=== PATIENT | male | born 1950 | race Caucasian/White ===

== ENCOUNTER 2018-05-10 20:05 | Emergency (ER) | payer OTHER ==
--- NOTE | 2018-05-10 21:44 | EDPHYS ---
Physician Documentation [facility] Name: Joaquín Peguero Age: 67 yrs Sex: Male : 1950 Arrival Date: 05/10/2018 Time: 20:06 Bed 7 Private MD: ED Physician Maurizio Birmingham HPI: 05/10 21:01 This 67 yrs old Male presents to ER via Ambulatory with complaints of Nose jr8 Bleed. 21:01 The patient presents with a nose bleed, that is apparently anterior, from both nares, jr8 occurred from an unknown cause, that is with clots, stopped /dried blood noted. Onset: The symptoms/episode began/occurred acutely, today. Modifying factors: The symptoms are alleviated by nothing. the symptoms are aggravated by blowing nose. Associated signs and symptoms: The patient has no apparent associated signs or symptoms, Loss of consciousness: the patient experienced no loss of consciousness. Severity of symptoms: At their worst the symptoms were mild in the emergency department the symptoms are unchanged. The patient has not experienced similar symptoms in the past. The patient has not recently seen a physician. Patient stated that he has occasional bloody noses. Stated that he had one today that started at 4 and lasted until he got here. Has not had one last that long before. Denies dizziness, near syncope, shortness of breath, or any other symptoms . Historical: - Allergies: 20:20 NKA; aj - Home Meds: 20:20 allopurinol 300 mg Oral tab 1 tab once daily [Active]; aspirin 81 mg Oral TbEC 1 tab aj once daily [Active]; atorvastatin 40 mg Oral tab 1 tab once daily [Active]; Effient 10 mg Oral tab 1 tab once daily [Active]; gabapentin 400 mg Oral cap 1 cap 3 times per day [Active]; glipizide 10 mg Oral tab 1 tab once daily [Active]; levothyroxine 75 mcg tab 1 tab once daily [Active]; metformin 500 mg Oral tr24 4 per day [Active]; metoprolol tartrate 50 mg Oral tab 1 tab 2 times per day [Active]; omeprazole 40 mg Oral cpDR 1 cap once daily [Active]; potassium citrate 10 mEq (1,080 mg) Oral TbER 1 tab 3 times per day [Active]; Pristiq 50 mg Oral Tb24 1 tab once daily [Active]; ramipril 5 mg Oral cap 1 cap once daily [Active]; Super B Complex-Vitamin C Oral tab twice a day [Active]; trazodone 50 mg Oral tab daily [Active]; Vitamin D Oral [Active]; - PMHx: 20:20 Diabetes - NIDDM; Hypertension; ischemic heart disease; aj - PSHx: 20:20 Lithotripsy; back; Cholecystectomy; Heart stents; aj - Immunization history:: Adult Immunizations up to date. - Social history:: Smoking status: Patient/guardian denies using tobacco. - Ebola Screening: : Patient negative for fever greater than or equal to 101.5 degrees Fahrenheit, and additional compatible Ebola Virus Disease symptoms Patient denies exposure to infectious person Patient denies travel to an Ebola-affected area in the 21 days before illness onset No symptoms or risks identified at this time. ROS: 21:01 Eyes: Negative for injury, pain, redness, and discharge, Neck: Negative for injury, jr8 pain, and swelling, Cardiovascular: Negative for chest pain, palpitations, and edema, Respiratory: Negative for shortness of breath, cough, wheezing, and pleuritic chest pain, Abdomen/GI: Negative for abdominal pain, nausea, vomiting, diarrhea, and constipation, Back: Negative for injury and pain, MS/Extremity: Negative for injury and deformity, Skin: Negative for injury, rash, and discoloration, Neuro: Negative for headache, weakness, numbness, tingling, and seizure. 21:01 ENT: Positive for nose bleed, Negative for drainage from ear(s), ear pain, sinus congestion, sore throat, difficulty swallowing, difficulty handling secretions, hoarseness. Exam: 21:01 Eyes: Pupils equal round and reactive to light, extra-ocular motions intact. Lids and jr8 lashes normal. Conjunctiva and sclera are non-icteric and not injected. Cornea within normal limits. Periorbital areas with no swelling, redness, or edema. Neck: Trachea midline, no thyromegaly or masses palpated, and no cervical lymphadenopathy. Supple, full range of motion without nuchal rigidity, or vertebral point tenderness. No Meningismus. Cardiovascular: Regular rate and rhythm with a normal S1 and S2. No gallops, murmurs, or rubs. Normal PMI, no JVD. No pulse deficits. Respiratory: Lungs have equal breath sounds bilaterally, clear to auscultation and percussion. No rales, rhonchi or wheezes noted. No increased work of breathing, no retractions or nasal flaring. Abdomen/GI: Soft, non-tender, with normal bowel sounds. No distension or tympany. No guarding or rebound. No evidence of tenderness throughout. Back: No spinal tenderness. No costovertebral tenderness. Full range of motion. Skin: Warm, dry with normal turgor. Normal color with no rashes, no lesions, and no evidence of cellulitis. MS/ Extremity: Pulses equal, no cyanosis. Neurovascular intact. Full, normal range of motion. Neuro: Awake and alert, GCS 15, oriented to person, place, time, and situation. Cranial nerves II-XII grossly intact. Motor strength 5/5 in all extremities. Sensory grossly intact. Cerebellar exam normal. Normal gait. 21:01 ENT: Nose: External nose: no obvious acute abnormality, Nasal septum: is midline, Nasal mucosa: moist, clotted blood, in both nares. Vital Signs: 20:20 BP 152 / 77; Pulse 71; Resp 16; Temp 98.6; Pulse Ox 97% on R/A; Weight 91.63 kg; Height aj 5 ft. 7 in. (170.18 cm); 21:14 BP 130 / 63; Pulse 72; Resp 17; Pulse Ox 97% on R/A; tl2 21:42 BP 127 / 77; Pulse 72; Resp 16; Temp 98.7(O); Pulse Ox 98% on R/A; Pain 0/10; tl1 20:20 Body Mass Index 31.64 (91.63 kg, 170.18 cm) MDM: 20:27 Patient medically screened. jr8 21:04 Data reviewed: vital signs, nurses notes. Data interpreted: Pulse oximetry: on room air jr8 is 97 %. Interpretation: normal. Counseling: I had a detailed discussion with the patient and/or guardian regarding: the historical points, exam findings, and any diagnostic results supporting the discharge/admit diagnosis, the need for outpatient follow up, an ENT specialist, a family practitioner, to return to the emergency department if symptoms worsen or persist or if there are any questions or concerns that arise at home. ED course: Patient without bleeding at this time. Clots in both nares. Is not swallowing blood. Will monitor for a while to insure that bleeding remains stopped . 21:43 ED course: Patient still without nosebleed. Will send home. Explained to him if it jr8 starts again to come back for packing. Patient good with this and will come back if needed . Administered Medications: No medications were administered Disposition: 05/11 06:47 Co-signature as Attending Physician, Maurizio Birmingham MD. Disposition: 05/10/18 21:44 Discharged to Home. Impression: Epistaxis. - Condition is Stable. - Discharge Instructions: Nosebleed. - Medication Reconciliation Form, Thank You Letter, Antibiotic Education, Prescription Opioid Use form. - Follow up: Private Physician; When: 2 - 3 days; Reason: Recheck today's complaints, Continuance of care, Re-evaluation by your physician. - Problem is new. - Symptoms have improved. Signatures: Montserrat Nieto RN RN Thierry Driver PA PA jr8 Shaina Tyler RN RN tl1 Maurizio Birmingham MD MD Corrections: (The following items were deleted from the chart) 05/10 22:00 21:44 05/10/2018 21:44 Discharged to Home. Impression: Epistaxis. Condition is Stable. tl1 Forms are Medication Reconciliation Form, Thank You Letter, Antibiotic Education, Prescription Opioid Use. Follow up: Private Physician; When: 2 - 3 days; Reason: Recheck today's complaints, Continuance of care, Re-evaluation by your physician. Problem is new. Symptoms have improved. jr8
--- NOTE | 2018-05-10 21:44 | ER ---
Nurse's Notes [facility] Name: Joaquín Peguero Age: 67 yrs Sex: Male : 1950 Arrival Date: 05/10/2018 Time: 20:06 Bed 7 Private MD: Diagnosis: Epistaxis Presentation: 05/10 20:18 Presenting complaint: Patient states: Nose bleed for 4 hours. Transition of care: aj patient was not received from another setting of care. Onset of symptoms was May 10, 2018. Risk Assessment: Do you want to hurt yourself or someone else? Patient reports no desire to harm self or others. Initial Sepsis Screen: Does the patient meet any 2 criteria? No. Patient's initial sepsis screen is negative. Does the patient have a suspected source of infection? No. Patient's initial sepsis screen is negative. Care prior to arrival: None. 20:18 Method Of Arrival: Ambulatory 20:18 Acuity: KINSEY 4 aj Triage Assessment: 20:20 General: Appears in no apparent distress. comfortable, Behavior is calm, cooperative, aj appropriate for age. Pain: Denies pain. Neuro: Level of Consciousness is awake, alert, obeys commands, Oriented to person, place, time, situation, Appropriate for age. Respiratory: Airway is patent Respiratory effort is even, unlabored, Respiratory pattern is regular, symmetrical. Derm: Skin is intact, is healthy with good turgor, Skin is pink, warm \T\ dry. normal. Historical: - Allergies: 20:20 NKA; aj - Home Meds: 20:20 allopurinol 300 mg Oral tab 1 tab once daily [Active]; aspirin 81 mg Oral TbEC 1 tab aj once daily [Active]; atorvastatin 40 mg Oral tab 1 tab once daily [Active]; Effient 10 mg Oral tab 1 tab once daily [Active]; gabapentin 400 mg Oral cap 1 cap 3 times per day [Active]; glipizide 10 mg Oral tab 1 tab once daily [Active]; levothyroxine 75 mcg tab 1 tab once daily [Active]; metformin 500 mg Oral tr24 4 per day [Active]; metoprolol tartrate 50 mg Oral tab 1 tab 2 times per day [Active]; omeprazole 40 mg Oral cpDR 1 cap once daily [Active]; potassium citrate 10 mEq (1,080 mg) Oral TbER 1 tab 3 times per day [Active]; Pristiq 50 mg Oral Tb24 1 tab once daily [Active]; ramipril 5 mg Oral cap 1 cap once daily [Active]; Super B Complex-Vitamin C Oral tab twice a day [Active]; trazodone 50 mg Oral tab daily [Active]; Vitamin D Oral [Active]; - PMHx: 20:20 Diabetes - NIDDM; Hypertension; ischemic heart disease; aj - PSHx: 20:20 Lithotripsy; back; Cholecystectomy; Heart stents; aj - Immunization history:: Adult Immunizations up to date. - Social history:: Smoking status: Patient/guardian denies using tobacco. - Ebola Screening: : Patient negative for fever greater than or equal to 101.5 degrees Fahrenheit, and additional compatible Ebola Virus Disease symptoms Patient denies exposure to infectious person Patient denies travel to an Ebola-affected area in the 21 days before illness onset No symptoms or risks identified at this time. Screenin:59 Abuse screen: Denies threats or abuse. Denies injuries from another. Nutritional tl1 screening: No deficits noted. Tuberculosis screening: No symptoms or risk factors identified. Fall Risk None identified. Assessment: 20:59 General: Appears in no apparent distress. comfortable, Behavior is calm, cooperative, tl1 appropriate for age. Pain: Denies pain. Neuro: Level of Consciousness is awake, alert, obeys commands, Oriented to person, place, time, situation, [employer] Station Collector are equal bilaterally Moves all extremities. Gait is steady, Speech is normal, Cardiovascular: Denies chest pain. Respiratory: Airway is patent Trachea midline Respiratory effort is even, unlabored, Breath sounds are clear bilaterally. GI: Abdomen is non-distended, Bowel sounds present X 4 quads. Abd is soft and non tender X 4 quads. : No signs and/or symptoms were reported regarding the genitourinary system. EENT: Nares with bleeding noted bilaterally Reports nasal discharge that is bloody. Derm: No signs and/or symptoms reported regarding the dermatologic system. 21:55 Reassessment: Patient and/or family updated on plan of care and expected duration. Pain tl1 level reassessed. Patient is alert, oriented x 3, equal unlabored respirations, skin warm/dry/pink. Patient denies pain at this time. Patient states feeling better. Patient states symptoms have improved. no signs and symptoms of nose bleed.. Vital Signs: 20:20 BP 152 / 77; Pulse 71; Resp 16; Temp 98.6; Pulse Ox 97% on R/A; Weight 91.63 kg; Height aj 5 ft. 7 in. (170.18 cm); 21:14 BP 130 / 63; Pulse 72; Resp 17; Pulse Ox 97% on R/A; tl2 21:42 BP 127 / 77; Pulse 72; Resp 16; Temp 98.7(O); Pulse Ox 98% on R/A; Pain 0/10; tl1 20:20 Body Mass Index 31.64 (91.63 kg, 170.18 cm) ED Course: 20:06 Patient arrived in ED. am2 20:19 Triage completed. aj 20:20 Arm band placed on right wrist. Patient placed in an exam room. aj 20:27 Thierry Coleman PA is PHCP. jr8 20:27 Maurizio Birmingham MD is Attending Physician. 8 20:59 Shaina Tyler, REY is Primary Nurse. tl1 21:01 No provider procedures requiring assistance completed. tl1 Administered Medications: No medications were administered Outcome: 21:44 Discharge ordered by . jr8 22:00 Patient left the ED. tl1 Signatures: Montserrat Nieto RN RN aj Roszak, Josh, PA PA [facility] Shaina Tyler RN RN tl1 Margarette Mckinley RN RN tl2 Montserrat Solis amMaximino
[2018-05-10 22:18] VITALS: BP 127/77; TEMP 98.7; O2SAT 98
== END 2018-05-10 22:00 | disposition home or self-care (01) ==
LOC: ER 20:05
DX: R04.0 Epistaxis (principal); E11.9 Type 2 diabetes mellitus without complications; Z79.84 Long term (current) use of oral hypoglycemic drugs; I10 Essential (primary) hypertension
CPT/HCPCS: 99281

== ENCOUNTER 2020-10-15 15:50 | Emergency (ER) | payer OTHER ==
--- OUTSIDE RECORDS SUMMARY | 2020-10-15 15:52 | XMS REPORT | Clinical Summary ---
:1950 Author Organization [facility] Address [address] [place] [address] Care Team Providers Name Role Phone DO Nic Primary Care Provider Allergies Active Allergy Reactions Severity Noted Date Comments Hydromorphone Other (See Comments) High 03/16/2019 Confus ion, agitation, and short term aleida ry loss Medications Medication Sig Dispensed Refills Start Date End Date Status levothyroxine Take 75 mcg by 0 A ctive (SYNTHROID, LEVOXYL) 75 mouth daily. mcg tablet allopurinol (ZYLOPRIM) Take 300 mg by 0 Active 300 MG tablet mouth daily. omeprazole (PriLOSEC) 40 Take 40 mg by 0 Active MG capsule mouth daily. gabapentin (NEURONTIN) Take 400 mg by 0 Active 400 mg capsule mouth 3 (three) times a day. prasugrel (EFFIENT) 10 Take 10 mg by 0 Active mg tablet mouth daily. desvenlafaxine (PRISTIQ) Take 50 mg by 0 Active 50 MG 24 hr tablet mouth daily. traZODone (DESYREL) 50 Take 50 mg by 0 Active MG tablet mouth nightly. atorvastatin (LIPITOR) Take 40 mg by 0 Active 40 MG tablet mouth daily. ramipril (ALTACE) 5 MG Take 5 mg by 0 Active capsule mouth daily. metoprolol tartrate Take 50 mg by 0 Active (LOPRESSOR) 50 mg tablet mouth 2 (two) times a day. aspirin (ECOTRIN) 81 MG Take 81 mg by 0 Active enteric coated tablet mouth daily. metFORMIN (GLUCOPHAGE) Take 500 mg by 0 Active 500 mg tablet mouth 4 (four) times a day. glipiZIDE (GLUCOTROL) 10 Take 10 mg by 0 Active MG tablet mouth 2 (two) times a day before meals. Active Problems Problem Noted Date Colonic mass 03/16/2019 Encounters Date Type Specialty Care Team Description 09/23/2020 Orders Only General Surgery Bao Nicolas MD after 10/15/2019 Surgical History Surgery Date Site/Laterality Comments COLONOSCOPY BACK SURGERY 1983, 1994 LITHOTRIPSY FOOT SURGERY Right 2010, spider bit e infection CHOLECYSTECTOMY 2012 CORONARY STENT PLACEMENT x 2 201 4 VASCULAR STENT GRAFT EXT EA ADDL right groin RESECTION, COLON, LOW ANTERIOR, 03/16/2019 Abdomen/N/A Procedure: ROBOTIC ASSISTED LAPAROSCOPIC, ROBOT-ASSISTED LAP AROSCOPIC LOW ANTERIOR RESECTION WITH L N DISSECTION, SPLE WENCESLAO FLEXURE TAKEDOWN, DRAINA GE OF ABSCESS; Surgeo n: Bao Nicolas M D; Location: [facility] OR; Service: Colon a nd Rectal Surgery; Latera lity: N/A; Medical devices from this surgery are in t he Implants section. 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- was on antibiotics for 6 mo nths PAD (peripheral artery disease) (HCC) Hard of hearing Wears glasses Malignant melanoma (HCC) left ear 2017-r emoved 10/31 Hepatitis B 1970s- treated Hypothyroidism Hard of hearing no hearing aids Family History Medical History Relation Name Comments Heart disease Brother Cancer Father Heart disease Mother Diabetes Sister Relation Name Status Comments Brother Father Mother Sister Social History Tobacco Use Types Packs/Day Years Used Date Never Smoker Smokeless Tobacco: Never Used Alcohol Use Drinks/Week oz/Week Comments No Alcohol Habits Answer Date Recorded How often do you have a drink containing alcohol? Never 03/07/2019 How many drinks containing alcohol do you have on a typical Not asked day when you are drinking? How often do you have six or more drinks on one occasion? No t asked Sex Assigned at Date Recorded Not on file Last Filed Vital Signs Not on file Plan of Treatment Health Maintenance Due Date Last Done Comments COLONOSCOPY SCREENING 2001 SHINGLES VACCINES (#1) 2001 65+ PNEUMOCOCCAL VACCINE (1 of 1 - PPSV23) 2016 INFLUENZA VACCINE 06/14/2020 Implants Implanted Type Area Sap Business Objects Consultant Device Shelf Model / Identifier Expiration Serial / Date Lot 29mm [place] Circular Powered Stapler Stapling - N/A: N/A [employer] 01/11/2022 [id number] / Implanted: Qty: 1 on 03/16/2019 by Bao Nicolas MD a t [facility] Endo ENDO-SURGERY, A / cutters, [employer] [id number] staplers, [employer] reloads Results Not on fileafter 10/15/2019 Insurance Payer Benefit Plan / Subscriber ID Effective Dates Phone Addre ss Type Group MEDICARE MEDICARE PART A [id number] 2016-Present [place], [place] Medicare AND B Advance Directives For more information, please contact: [phone] Type Date Recorded Patient Litigation Assistant Explanati on Advance Directives, Living Will and Medical Power of Windows Architect Code Status Date Activated Date Inactivated Comments Full Code 03/16/2019 12:03 PM 03/18/2019 3:01 PM Code Status decision reached by: Patient
--- NOTE | 2020-10-15 19:46 | RAD REPORT ---
EXAM DESCRIPTION: RAD - Chest Single View - 10/15/2020 7:38 pm CLINICAL HISTORY: hypertensive, abnornal labs COMPARISON: Two view chest October 2017 TECHNIQUE: AP portable chest image was obtained 10/15/2020 7:38 pm . FINDINGS: Lung volumes are low accentuating heart, vasculature and lung markings. No peripheral mass or consolidation. No significant failure or volume overload. Sternotomy wires have been placed since prior study. Heart and vasculature are normal. No measurable pleural effusion and no pneumothorax. N o acute bony abnormality seen. No acute aortic findings suspected. IMPRESSION: Limited shallow inspiration exam without acute cardiopulmonary finding.
[2020-10-15 20:59] LABS: Absolute Lymphocytes (CBC) 1.2 K/uL (0.7-4.9); Basophils % 0.9 % (0-1.3); Hematocrit 44.9 % (39.6-49.0); Lymphocytes % 12.9 % (15.3-44.8); MPV 8.1 fL (7.6-11.3); RBC Red Blood Cell Count 4.95 M/uL (4.33-5.43)
[2020-10-15 21:05] LABS: Protime INR 1.07
[2020-10-15 21:14] LABS: ALT/SGPT 32 U/L (12-78); AST/SGOT 24 U/L (15-37); Alkaline Phosphatase 116 U/L (45-117); BUN Blood Urea Nitrogen 33 mg/dL (7-18); Bicarbonate 24 mmol/L (21-32); Bilirubin Direct 0.1 mg/dL (0-0.2); Bilirubin Total 0.4 mg/dL (0.2-1.0); Glucose Level 208 mg/dL (74-106); Magnesium 2.8 mg/dL (1.8-2.4); NT PRO-BNP 62 pg/mL (<125); Protein, Total 8.6 g/dL (6.4-8.2); Sodium Level 137 mmol/L (136-145); Troponin (Emerg Dept Use Only) < 0.02 ng/mL (0.0-0.045)
--- NOTE | 2020-10-15 21:27 | EDPHYS ---
Physician Documentation [facility] Name: Joaquín Peguero Age: 70 yrs Sex: Male : 1950 Arrival Date: 10/15/2020 Time: 15:51 Bed 5 Private MD: ED Physician Adalberto Barnes HPI: 10/15 19:16 This 70 yrs old Male presents to ER via Ambulatory with complaints of mh7 Abnormal EKG, . 19:16 Patient sent from clinic due to abnormal labs and abnormal EKG. Onset: The mh7 symptoms/episode began/occurred 1 week(s) ago. Severity of symptoms: At their worst the symptoms were mild 7 day(s) ago, in the emergency department the symptoms are unchanged. The patient has been recently seen by a physician: the patient's primary care provider, earlier today. Patient states that he was seen in clinic last week to have routine lab work. He was told that his potassium was elevated and to go to ER for further evaluation. He was seen in clinic again today and was told that his EKG was abnormal and to go to the ER for evaluation. He denies any complaints including headache, chest pain, abdominal pain, SOB, nausea, vomiting, dizziness, numbness/tingling, or weakness.. Historical: - Allergies: 21:46 NKA; ll2 - PMHx: 21:46 Diabetes - NIDDM; Hypertension; ischemic heart disease; CAD; ll2 - PSHx: 21:46 Lithotripsy; back; Cholecystectomy; Heart stents; CABG; Aortic valve Replacment; ll2 - Immunization history:: Adult Immunizations up to date, Pneumococcal vaccine is up to date, Flu vaccine is up to date. - Social history:: Smoking status: Patient denies any tobacco usage or history of. ROS: 19:16 Constitutional: Negative for fever, chills, and weight loss, Eyes: Negative for injury, mh7 pain, redness, and discharge, ENT: Negative for injury, pain, and discharge, Neck: Negative for injury, pain, and swelling, Cardiovascular: Negative for chest pain, palpitations, and edema, Respiratory: Negative for shortness of breath, cough, wheezing, and pleuritic chest pain, Abdomen/GI: Negative for abdominal pain, nausea, vomiting, diarrhea, and constipation, Back: Negative for injury and pain, : Negative for injury, bleeding, discharge, and swelling, MS/Extremity: Negative for injury and deformity, Skin: Negative for injury, rash, and discoloration, Neuro: Negative for headache, weakness, numbness, tingling, and seizure, Psych: Negative for depression, anxiety, suicide ideation, homicidal ideation, and hallucinations, Allergy/Immunology: Negative for hives, rash, and allergies, Endocrine: Negative for neck swelling, polydipsia, polyuria, polyphagia, and marked weight changes, Hematologic/Lymphatic: Negative for swollen nodes, abnormal bleeding, and unusual bruising. Exam: 19:16 Constitutional: This is a well developed, well nourished patient who is awake, alert, mh7 and in no acute distress. Head/Face: Normocephalic, atraumatic. Eyes: Pupils equal round and reactive to light, extra-ocular motions intact. Lids and lashes normal. Conjunctiva and sclera are non-icteric and not injected. Cornea within normal limits. Periorbital areas with no swelling, redness, or edema. Neck: Trachea midline, no thyromegaly or masses palpated, and no cervical lymphadenopathy. Supple, full range of motion without nuchal rigidity, or vertebral point tenderness. No Meningismus. Chest/axilla: Normal chest wall appearance and motion. Nontender with no deformity. No lesions are appreciated. Cardiovascular: Regular rate and rhythm with a normal S1 and S2. No gallops, murmurs, or rubs. Normal PMI, no JVD. No pulse deficits. Respiratory: Lungs have equal breath sounds bilaterally, clear to auscultation and percussion. No rales, rhonchi or wheezes noted. No increased work of breathing, no retractions or nasal flaring. Abdomen/GI: Soft, non-tender, with normal bowel sounds. No distension or tympany. No guarding or rebound. No evidence of tenderness throughout. Back: No spinal tenderness. No costovertebral tenderness. Full range of motion. Skin: Warm, dry with normal turgor. Normal color with no rashes, no lesions, and no evidence of cellulitis. MS/ Extremity: Pulses equal, no cyanosis. Neurovascular intact. Full, normal range of motion. Neuro: Awake and alert, GCS 15, oriented to person, place, time, and situation. Cranial nerves II-XII grossly intact. Motor strength 5/5 in all extremities. Sensory grossly intact. Cerebellar exam normal. Normal gait. Psych: Awake, alert, with orientation to person, place and time. Behavior, mood, and affect are within normal limits. Vital Signs: 15:57 BP 164 / 70; Pulse 73; Resp 18 S; Temp 97.1(TE); Pulse Ox 98% on R/A; Weight 94.17 kg ca1 (R); Height 5 ft. 7 in. (170.18 cm) (R); Pain 0/10; 20:58 BP 134 / 81; Pulse 72; Resp 16; Pulse Ox 96% on R/A; rv 15:57 Body Mass Index 32.51 (94.17 kg, 170.18 cm) ca1 MDM: 21:23 Differential Diagnosis Abnormal Labs, Abnormal EKG, Hypertension, Diabetes. Data [facility] reviewed: vital signs, nurses notes, old medical records, lab test result(s), cardiac enzymes, CBC, electrolytes, EKG, radiologic studies, plain films. Data interpreted: Pulse oximetry: on room air is 96 %. Interpretation: normal. Counseling: I had a detailed discussion with the patient and/or guardian regarding: the historical points, exam findings, and any diagnostic results supporting the discharge/admit diagnosis, the presence of at least one elevated blood pressure reading (>120/80) during this emergency department visit, lab results, radiology results, the need for outpatient follow up, to return to the emergency department if symptoms worsen or persist or if there are any questions or concerns that arise at home. Response to treatment: the patient's symptoms have resolved after treatment, the patient's blood pressure is in an acceptable range, mental status has returned to baseline, the patient no longer shows bradycardia, the patient is not short of breath, the patient is not tachycardic, the patient's pain is gone, the patient's temperature has normalized. 21:26 Patient medically screened. [facility] 10/15 19:15 Order name: Basic Metabolic Panel; Complete Time: 21:19 [facility] 10/15 19:15 Order name: CBC with Diff; Complete Time: 21:15 [facility] 10/15 19:15 Order name: LFT's; Complete Time: 21:19 [facility] 10/15 19:15 Order name: Magnesium; Complete Time: 21:19 [facility] 10/15 19:15 Order name: NT PRO-BNP; Complete Time: 21:19 [facility] 10/15 19:15 Order name: PT-INR; Complete Time: 21:15 [facility] 10/15 19:15 Order name: Troponin (emerg Dept Use Only); Complete Time: 21:19 7 10/15 19:15 Order name: XRAY Chest (1 view); Complete Time: 19:55 7 10/15 19:15 Order name: EKG; Complete Time: 19:16 7 10/15 19:15 Order name: Cardiac monitoring; Complete Time: 21:19 [facility] 10/15 19:15 Order name: EKG - Nurse/Tech; Complete Time: 21:19 [facility] 10/15 19:15 Order name: IV Saline Lock; Complete Time: 21:19 [facility] 10/15 19:15 Order name: Labs collected and sent; Complete Time: 21:19 7 10/15 19:15 Order name: O2 Per Protocol; Complete Time: 21:19 [facility] 10/15 19:15 Order name: O2 Sat Monitoring; Complete Time: 21:20 mh7 Administered Medications: No medications were administered Disposition: 10/15/20 21:26 Discharged to Home. Impression: Hypertension, Diabetes, Evaluation for Abnormal Outpatient Studies. - Condition is Stable. - Discharge Instructions: Hypertension, [id number], Type 2 Diabetes Mellitus, Self Care, Adult, [id number]. - Medication Reconciliation Form, Thank You Letter, Antibiotic Education, Prescription Opioid Use form. - Follow up: Private Physician; When: 1 - 2 days; Reason: Worsening of condition, Recheck today's complaints, Continuance of care, Re-evaluation by your physician. - Problem is new. - Symptoms are resolved. Signatures: Dispatcher [employer] EDMS Sulma Tejada RN RN ca1 Maranda Lang RN RN ll2 Adalberto Barnes MD MD 7 Corrections: (The following items were deleted from the chart) 21:46 16:03 Allergies: NKA; ca1 ll2 21:46 16:03 PMHx: Diabetes - NIDDM; ca1 ll2 21:46 16:03 PMHx: Hypertension; ca1 ll2 21:46 16:03 PMHx: ischemic heart disease; ca1 ll2 21:46 16:03 PMHx: CAD; ca1 ll2 21:46 16:03 PSHx: Lithotripsy; ca1 ll2 21:46 16:03 PSHx: back; ca1 ll2 21:46 16:03 PSHx: Cholecystectomy; ca1 ll2 21:46 16:03 PSHx: Heart stents; ca1 ll2 21:46 16:03 PSHx: CABG; ca1 ll2 21:46 16:03 PSHx: Aortic valve Replacment; ca1 ll2 21:47 21:26 10/15/2020 21:26 Discharged to Home. Impression: Hypertension; Diabetes; ll2 Evaluation for Abnormal Outpatient Studies. Condition is Stable. Forms are Medication Reconciliation Form, Thank You Letter, Antibiotic Education, Prescription Opioid Use. Follow up: Private Physician; When: 1 - 2 days; Reason: Worsening of condition, Recheck today's complaints, Continuance of care, Re-evaluation by your physician. Problem is new. Symptoms are resolved. mh7
--- NOTE | 2020-10-15 21:27 | ER ---
Nurse's Notes [facility] Name: Joaquín Peguero Age: 70 yrs Sex: Male : 1950 Arrival Date: 10/15/2020 Time: 15:51 Bed 5 Private MD: Diagnosis: Hypertension;Diabetes;Evaluation for Abnormal Outpatient Studies Presentation: 10/15 15:57 Chief complaint: Patient states: Blood works done last Tuesday, routine blood work. ca1 EKG done 1 hr ANODE ADJUSTER reads NSR, Septal infarct, Abnormal EKG. Potassium 5.4. They told me to come to the ER and needs to be evaluated. Seen by [place] [facility] across the road. Denies chest pain. Denies any complain at this time. Coronavirus screen: Client denies travel out of the [place] in the last 14 days. At this time, the client does not indicate any symptoms associated with coronavirus-19. Ebola Screen: Patient negative for fever greater than or equal to 101.5 degrees Fahrenheit, and additional compatible Ebola Virus Disease symptoms Patient denies exposure to infectious person. Patient denies travel to an Ebola-affected area in the 21 days before illness onset. No symptoms or risks identified at this time. Initial Sepsis Screen: Does the patient meet any 2 criteria? No. Patient's initial sepsis screen is negative. Does the patient have a suspected source of infection? No. Patient's initial sepsis screen is negative. Risk Assessment: Do you want to hurt yourself or someone else? Patient reports no desire to harm self or others. Onset of symptoms was October 15, 2020. 15:57 Method Of Arrival: Ambulatory ca1 15:57 Acuity: KINSEY 3 ca1 Triage Assessment: 21:46 General: Appears in no apparent distress. Behavior is calm, cooperative, appropriate ll2 for age. Pain: Denies pain. Historical: - Allergies: 21:46 NKA; ll2 - PMHx: 21:46 Diabetes - NIDDM; Hypertension; ischemic heart disease; CAD; ll2 - PSHx: 21:46 Lithotripsy; back; Cholecystectomy; Heart stents; CABG; Aortic valve Replacment; ll2 - Immunization history:: Adult Immunizations up to date, Pneumococcal vaccine is up to date, Flu vaccine is up to date. - Social history:: Smoking status: Patient denies any tobacco usage or history of. Screenin:45 Abuse screen: Denies threats or abuse. Nutritional screening: No deficits noted. ll2 Tuberculosis screening: No symptoms or risk factors identified. Fall Risk None identified. Assessment: 16:06 Reassessment: Shown Dr. Gaines pt's EKG and lab works done last week. Dr. Gaines ca1 says, pt okay to wait at the lobby. 19:05 Reassessment: Patient and/or family updated on plan of care and expected duration. Pain ll2 level reassessed. Patient is alert, oriented x 3, equal unlabored respirations, skin warm/dry/pink. ERD to bedside with patient. 20:10 Reassessment: Patient and/or family updated on plan of care and expected duration. Pain ll2 level reassessed. Patient is alert, oriented x 3, equal unlabored respirations, skin warm/dry/pink. 21:20 Reassessment: No changes from previously documented assessment. Patient and/or family ll2 updated on plan of care and expected duration. Pain level reassessed. Patient is alert, oriented x 3, equal unlabored respirations, skin warm/dry/pink. Vital Signs: 15:57 BP 164 / 70; Pulse 73; Resp 18 S; Temp 97.1(TE); Pulse Ox 98% on R/A; Weight 94.17 kg ca1 (R); Height 5 ft. 7 in. (170.18 cm) (R); Pain 0/10; 20:58 BP 134 / 81; Pulse 72; Resp 16; Pulse Ox 96% on R/A; rv 15:57 Body Mass Index 32.51 (94.17 kg, 170.18 cm) ca1 ED Course: 15:51 Patient arrived in ED. ag5 16:01 Triage completed. ca1 16:03 Arm band placed on right wrist. ca1 19:00 Adalberto Barnes MD is Attending Physician. mh7 19:36 XRAY Chest (1 view) In Process Unspecified. EDMS 19:47 Maranda Lang, REY is Primary Nurse. ll2 20:41 Inserted saline lock: 20 gauge in right forearm, using aseptic technique. Blood rv collected. 20:41 Initial lab(s) drawn, by me, sent to lab. rv 21:45 Patient has correct armband on for positive identification. Bed in low position. Call ll2 light in reach. Side rails up X 1. monitoring manager on. Pulse ox on. NIBP on. 21:47 No provider procedures requiring assistance completed. IV discontinued, intact, ll2 bleeding controlled, No redness/swelling at site. Pressure dressing applied. Administered Medications: No medications were administered Outcome: : Discharge ordered by 7 21:47 Discharged to home ambulatory. ll2 21:47 Condition: stable 21:47 Instructed on discharge instructions, follow up and referral plans. 21:47 Patient left the ED. ll2 Signatures: Dispatcher [employer] Laurent Anna, RN RN rv Sulma Tejada RN RN ca1 Jaspreet Viera ag5 Maranda Lang RN RN ll2 Adalberto Barnes MD MD 7 Corrections: (The following items were deleted from the chart) 21:46 16:03 Allergies: NKA; ca1 ll2 21:46 16:03 PMHx: Diabetes - NIDDM; ca1 ll2 21:46 16:03 PMHx: Hypertension; ca1 ll2 21:46 16:03 PMHx: ischemic heart disease; ca1 ll2 21:46 16:03 PMHx: CAD; ca1 ll2 21:46 16:03 PSHx: Lithotripsy; ca1 ll2 21:46 16:03 PSHx: back; ca1 ll2 21:46 16:03 PSHx: Cholecystectomy; ca1 ll2 21:46 16:03 PSHx: Heart stents; ca1 ll2 21:46 16:03 PSHx: CABG; ca1 ll2 21:46 16:03 PSHx: Aortic valve Replacment; ca1 ll2
--- NOTE | 2020-10-16 06:08 | EKG ---
Test Date: 2020-10-15 Test Time: 20:07:45 Steam Table Attendant: PAM MEASUREMENT RESULTS: Intervals: Rate: 67 [place]: 166 QRSD: 86 QT: 396 QTc: 418 [place]: P: 54 [place]: 166 QRS: -8 T: 10 INTERPRETIVE STATEMENTS: Normal sinus rhythm Normal ECG Compared to ECG 10/25/2017 14:41:51 Sinus bradycardia no longer present T-wave abnormality no longer present Electronically Signed On 10-16-20 06:07:15 [employer] by Yuan Diaz
== END 2020-10-15 21:47 | disposition home or self-care (01) ==
LOC: ER 15:50
DX: I10 Essential (primary) hypertension (principal); E11.9 Type 2 diabetes mellitus without complications; Z95.1 Presence of aortocoronary bypass graft; Z95.818 Presence of other cardiac implants and grafts; Z95.4 Presence of other heart-valve replacement
CPT/HCPCS: 36415; 71045; 80048; 80076; 83735; 83880; 84484; 85025; 85610; 93005; 99284

== ENCOUNTER 2022-02-24 07:05 | Day surgery (SDC) | payer OTHER ==
[2022-02-24] MEDS ORDERED: NA CHLORIDE 0.9% 1,000 ML ONE (07:41)
[2022-02-24] MEDS ORDERED: GENTAMICIN 80 MG/100 ML BAG 80 MG/100 ML BAG IV ONE ×2 (07:45→07:46)
[2022-02-24] MEDS ORDERED: AMPICILLIN SODIUM 1 GM in NA CHLORIDE 0.9% 100 ML IVPB ONE (08:00)
[2022-02-24] MEDS ORDERED: LIDOCAINE 1% MPF 5 ML VIAL ONE (08:58)
[2022-02-24] MEDS ORDERED: propofoL 200 MG/20 ML VIAL IV ONE (08:58)
[2022-02-24] MEDS ORDERED: SIMETHICONE 40 MG/ 0.6 ML ONE (09:04)
--- NOTE | 2022-02-24 09:55 | ENDO RPT ---
[address], [address] COLONOSCOPY PROCEDURE REPORT EXAM DATE: 02/24/2022 PATIENT NAME: Joaquín Peguero MR #: [id number] BIRTHDATE: 1950 ATTENDING: Keven Wright Dr STATUS: outpatient [employer] OPERATOR: Erica Bartholomew RN and Olga Winchester INDICATIONS: The patient is a 71 yr old Male here for a colonoscopy due to PROCEDURE PERFORMED: Colonoscopy with snare polypectomy MEDICATIONS: Per Anesthesia. ESTIMATED BLOOD LOSS: None CONSENT: The patient understands the risks and benefits of the procedure and understands that these risks include, but are not limited to: sedation, allergic reaction, infection, perforation and/or bleeding. Alternative means of evaluation and treatment include, among others: physical exam, x-rays, and/or surgical intervention. The patient elects to proceed with this endoscopic procedure. DESCRIPTION OF PROCEDURE: During intra-op preparation period all mechanical medical equipment was checked for proper function. Hand hygiene and appropriate measures for infection prevention was taken. Procedure, possible complications, alternatives including, but not limited to possibility of bleeding, perforation, tear, infection, sepsis, need for surgery, need for blood transfusion, were explained to the patient. After the risks, benefits and alternatives of the procedure were thoroughly explained, Informed consent was verified, confirmed and timeout was successfully executed by the treatment team. The patient was placed in the left lateral position. A digital rectal exam was performed and revealed no abnormalities of the rectum. After appropriate level of anesthesia, the scope was passed. The EC-[id number] ([id number]) endoscope was introduced through the anus and advanced to the cecum, which was identified by both the appendix and ileocecal valve. The quality of the prep was fair. The instrument was then slowly withdrawn as the colon was fully examined. Scope withdrawal time was 9 minutes. COLON FINDINGS: A smooth sessile polyp measuring 8 mm in size was found at the cecum. A polypectomy was performed using snare cautery. The resection was complete, the polyp tissue was completely retrieved and sent to histology. Mild diverticulosis was noted throughout the entire examined colon. No bleeding was noted from the diverticulosis. Anastomosis in the rectum at 20 cm from the anal verge. Small internal hemorrhoids were found. Retroflexed views revealed small hemorrhoids. The scope was then completely withdrawn from the patient and the procedure terminated. ADVERSE EVENTS: There were no complications. IMPRESSIONS: 1. 8 mm sessile polyp in the cecum; polypectomy was performed using snare cautery 2. Mild diverticulosis throughout the entire examined colon 3. Anastomosis in the rectum at 20 cm from the anal verge 4. Small internal hemorrhoids 5. Intubation to cecum RECOMMENDATIONS: 1. await biopsy results 2. avoid NSAIDS for 2 weeks 3. fiber rich diet RECALL: Return in 3 year(s) for Colonoscopy. Keven Wright Dr eSigned: Keven Wright Dr 02/24/2022 9:55 AM cc: [facility] in [place], [place] CPT CODES: ICD9 CODES: 211.3 Benign neoplasm of colon PATIENT NAME: Joaquín Peguero MR#: [id number]
[2022-02-24 13:03] VITALS: BP 124/69; TEMP 98.6; O2SAT 99
== END 2022-02-24 10:10 | disposition home or self-care (01) ==
LOC: OR 07:05
PROVIDERS: ATTEND Internal Medicine Gastroenterology
PROC: 0DBH8ZX Excision of Cecum, Via Natural or Artificial Opening Endoscopic, Diagnostic (ICD-10-PCS; principal; 2022-02-24 08:30)
DX: D12.0 Benign neoplasm of cecum (principal); K57.32 Diverticulitis of large intestine without perforation or abscess without bleeding; K64.8 Other hemorrhoids; K57.30 Diverticulosis of large intestine without perforation or abscess without bleeding; Z20.822 Contact with and (suspected) exposure to COVID-19; E11.9 Type 2 diabetes mellitus without complications; E78.5 Hyperlipidemia, unspecified; I10 Essential (primary) hypertension; K21.9 Gastro-esophageal reflux disease without esophagitis; E07.9 Disorder of thyroid, unspecified; I25.10 Atherosclerotic heart disease of native coronary artery without angina pectoris; Z98.890 Other specified postprocedural states
CPT/HCPCS: 45385; 82947; 88305; U0003; J2704; J7030; J1580; J0290